=== PATIENT | female | born 1970 | race African-American/Black ===

== ENCOUNTER 2022-01-09 14:52 | Inpatient (IN) ==
[2022-01-09] MEDS ORDERED: ONDANSETRON 4 MG/2 ML VIAL IV STA (20:31)
[2022-01-09] MEDS ORDERED: ALUM/MAG/SIMETH/LIDO VISC 1:1 30 ML BOTTLE PO STA (20:31)
[2022-01-09] MEDS ORDERED: KETOROLAC 30 MG/1 ML VIAL IV STA (20:31)
[2022-01-09] MEDS ORDERED: SODIUM CHLORIDE 0.9% 500 ML IV STA (20:31)
[2022-01-09] MEDS ORDERED: PANTOPRAZOLE 40 MG VIAL IV STA (20:31)
[2022-01-09] MEDS ORDERED: HYDROmorphone 1 MG/1 ML SYRINGE IV STA (20:31)
[2022-01-09 20:42] LABS: Basophils # 0.1 10*3/uL (0.0-0.2); Basophils % 0.6 % (0.0-0.8); Eosinophils # 0.3 10*3/uL (0.0-0.87); Eosinophils % 2.2 % (0.00-10.9); Hematocrit 43.5 VOL% (35.7-47.0); Hemoglobin 15.2 GM/DL (12.0-16.0); Immature Granulocytes % 0.6 %; Immature Granulocytes Absolute 0.07 #; Lymphocytes # 5.5 10*3/uL (1.4-4.0); Lymphocytes % 47.1 % (21.3-54.2); Mean Corpuscular HGB Conc 34.9 GM/DL (32-36); Mean Corpuscular Volume 90.6 FL (87-102); Mean Platelet Volume 12.9 FL (9.6-12.0); Monocytes % 8.4 % (1.7-12.7); Neutrophils % 41.1 % (38.7-73.9); Platelet Count 227 T/CUMM (130-400); Red Cell Distribution Width 17.2 % (9.3-17.3); White Blood Count 11.7 T/CUMM (4-12)
[2022-01-09 20:43] LABS: Bacteria,Urine Occasional /HPF (Few); Mucus,Urine Moderate /LPF (Occasional); RBC,Urine 2 /HPF (0-4); Squamous Epithelial Cell,Urine Occasional /HPF (0-10); Urine Appearance Slightly Hazy (Clear); Urine Color Amber (Yellow)
[2022-01-09 20:44] LABS: Bilirubin,Urine Large mg/dL (Negative); Blood, Urine Negative (Negative); Glucose,Urine (UA) 100 mg/dL (Negative); Ketones,Urine Trace mg/dL (Negative); Nitrite,Urine Negative (Negative); Protein,Urine 30 mg/dL (Negative); Urine Specific Gravity > 1.030 (1.001-1.035); Urine pH 5.5 (4.5-8.0)
[2022-01-09 21:15] LABS: Lymphocytes 46 % (20-55); Total Cells Counted 100
[2022-01-09 21:16] LABS: Albumin 4.1 G/DL (3.4-5.0); Bilirubin,Total 7.3 MG/DL (0.20-1.00); Calcium 9.6 MG/DL (8.5-10.1); Potassium 3.9 MMOL/L (3.5-5.1); Schistocytes Slight; Target Cells Few; Total Protein 8.8 G/DL (6.4-8.2)
[2022-01-09 21:17] LABS: Platelet Estimate Normal
[2022-01-09] MEDS ORDERED: PIPERACILLIN/TAZOBACTAM 3,375 MG in SODIUM CHLORIDE 0.9% 100 ML IV STA (21:37)
[2022-01-09] MEDS ORDERED: GLUCAGON 1 MG VIAL IM PRN (21:48)
[2022-01-09] MEDS ORDERED: DEXTROSE 10% 250 ML BAG IV PRN (21:48)
[2022-01-09] MEDS ORDERED: ACETAMINOPHEN 325 MG TABLET PO PRN (21:48)
[2022-01-09] MEDS ORDERED: hydrALAZINE 20 MG/1 ML VIAL IV PRN (23:07)
[2022-01-09] MEDS: SODIUM CHLORIDE 0.9% 1,000 ML IV SCH (23:54)
[2022-01-10] MEDS: NICOTINE 21 MG/24 HR PATCH TRANSDERM SCH ×2 (02:02→08:28)
[2022-01-10] MEDS: PIPERACILLIN/TAZOBACTAM 3,375 MG in SODIUM CHLORIDE 0.9% 100 ML IV SCH ×3 (05:47→20:32)
[2022-01-10 07:12] LABS: Basophils # 0.1 10*3/uL (0.0-0.2); Basophils % 0.7 % (0.0-0.8); Eosinophils # 0.2 10*3/uL (0.0-0.87); Eosinophils % 2.2 % (0.00-10.9); Hemoglobin 14.1 GM/DL (12.0-16.0); Immature Granulocytes % 0.7 %; Immature Granulocytes Absolute 0.07 #; Lymphocytes # 3.1 10*3/uL (1.4-4.0); Lymphocytes % 32.2 % (21.3-54.2); Mean Corpuscular HGB Conc 34.4 GM/DL (32-36); Mean Corpuscular Volume 91.3 FL (87-102); Mean Platelet Volume 12.2 FL (9.6-12.0); Monocytes # 1.1 10*3/uL (0.11-0.8); Monocytes % 11.4 % (1.7-12.7); Neutrophils % 52.8 % (38.7-73.9); Platelet Count 211 T/CUMM (130-400); Red Blood Count 4.49 MC/CUMM (3.8-5.5); Red Cell Distribution Width 17.7 % (9.3-17.3); White Blood Count 9.6 T/CUMM (4-12)
[2022-01-10 07:34] LABS: Albumin 3.4 G/DL (3.4-5.0); Bilirubin,Total 6.2 MG/DL (0.20-1.00); Calcium 9.2 MG/DL (8.5-10.1); Osmolality,Calculated 269.1 MOS/KG (273-304); Potassium 4.3 MMOL/L (3.5-5.1); Total Protein 7.8 G/DL (6.4-8.2)
[2022-01-10 07:39] LABS: Eosinophils 1 % (0-10); Lymphocytes 25 % (20-55); Platelet Estimate Adequate; Total Cells Counted 100
[2022-01-10] MEDS: PANTOPRAZOLE 40 MG TABLET PO SCH (08:27)
[2022-01-10] MEDS: SODIUM CHLORIDE 0.9% 1,000 ML IV SCH (14:13)
[2022-01-10] MEDS: HYDROmorphone 1 MG/1 ML SYRINGE IV PRN (17:08)
[2022-01-10] MEDS ORDERED: FLUTICASONE 50 MCG NASAL SPRAY 16 GM BOTTLE BOTH NARES PRN (17:11)
[2022-01-11] MEDS: SODIUM CHLORIDE 0.9% 1,000 ML IV SCH ×2 (02:30→18:35)
[2022-01-11] MEDS: PIPERACILLIN/TAZOBACTAM 3,375 MG in SODIUM CHLORIDE 0.9% 100 ML IV SCH ×3 (04:31→21:10)
[2022-01-11 05:37] LABS: Basophils # 0.1 10*3/uL (0.0-0.2); Basophils % 0.6 % (0.0-0.8); Eosinophils # 0.1 10*3/uL (0.0-0.87); Eosinophils % 1.4 % (0.00-10.9); Hematocrit 41.6 VOL% (35.7-47.0); Hemoglobin 14.5 GM/DL (12.0-16.0); Immature Granulocytes % 0.6 %; Immature Granulocytes Absolute 0.06 #; Lymphocytes # 2.9 10*3/uL (1.4-4.0); Lymphocytes % 30.7 % (21.3-54.2); Mean Corpuscular HGB Conc 34.9 GM/DL (32-36); Mean Corpuscular Volume 89.1 FL (87-102); Monocytes # 0.9 10*3/uL (0.11-0.8); Monocytes % 9.2 % (1.7-12.7); Neutrophils % 57.5 % (38.7-73.9); Platelet Count 219 T/CUMM (130-400); Red Blood Count 4.67 MC/CUMM (3.8-5.5); Red Cell Distribution Width 17.2 % (9.3-17.3); White Blood Count 9.4 T/CUMM (4-12)
[2022-01-11 05:44] LABS: INR 1.1; PT Patient Result 12.3 SECS (10.1-12.1)
[2022-01-11 05:59] LABS: AFP Tumor 6.3 NG/ML (0-8); Carcinoembryonic Antigen 1.1 NG/ML (0.0-5.0)
[2022-01-11] MEDS: ONDANSETRON 4 MG/2 ML VIAL IV PRN ×2 (06:32→11:03)
[2022-01-11] MEDS ORDERED: INDOMETHACIN SUPP 50 MG SUPP RECTAL ONE ×2 (06:33→08:22)
[2022-01-11] MEDS: LACTATED RINGERS 1,000 ML IV SCH (08:14)
[2022-01-11] MEDS ORDERED: LIDOCAINE 2% 5 ML VIAL ONE (08:20)
[2022-01-11] MEDS ORDERED: ROCURONIUM 50 MG/5 ML VIAL IV ONE (08:20)
[2022-01-11] MEDS ORDERED: fentaNYL 100 MCG/2 ML VIAL ONE (08:20)
[2022-01-11] MEDS ORDERED: propofoL 200 MG/20 ML VIAL IV ONE ×2 (08:20→09:24)
[2022-01-11] MEDS ORDERED: SUCCINYLCHOLINE 200 MG/10 ML VIAL ONE (08:20)
[2022-01-11] MEDS ORDERED: MIDAZOLAM 2 MG/2 ML VIAL ONE (08:21)
[2022-01-11] MEDS ORDERED: SEVOFLURANE 1 UNIT/15 MINUTE INH ONE ×5 (08:21→10:25)
[2022-01-11 08:24] LABS: Albumin 3.3 G/DL (3.4-5.0); Bilirubin,Total 8.2 MG/DL (0.20-1.00); Calcium 9.4 MG/DL (8.5-10.1); Osmolality,Calculated 276.5 MOS/KG (273-304); Potassium 4.2 MMOL/L (3.5-5.1)
[2022-01-11 08:52] LABS: Hepatitis B Core IgM Quant 0.12 Index; Hepatitis B Surface Ag Quant 0.14 Index; Hepatitis B Surface Ag Result Non-Reactive (NonReactive); Hepatitis C Virus Ab Quant 0.21 Index; Hepatitis C Virus Ab Result Non-Reactive (NonReactive)
[2022-01-11] MEDS ORDERED: ONDANSETRON 4 MG/2 ML VIAL ONE (10:17)
[2022-01-11] MEDS ORDERED: LABETALOL 20 MG/4 ML SYRINGE IV ONE (10:17)
[2022-01-11] MEDS: PANTOPRAZOLE 40 MG TABLET PO SCH (10:25)
[2022-01-11] MEDS: NICOTINE 21 MG/24 HR PATCH TRANSDERM SCH (10:25)
[2022-01-11] MEDS ORDERED: MEPERIDINE 25 MG/1 ML VIAL IV STA (10:51)
[2022-01-11] MEDS ORDERED: MEPERIDINE 50 MG/1 ML VIAL ONE ×2 (10:57→11:26)
[2022-01-11] MEDS ORDERED: MEPERIDINE 25 MG/1 ML VIAL IV ONE (11:20)
[2022-01-11] MEDS: HYDROmorphone 1 MG/1 ML SYRINGE IV PRN (14:20)
[2022-01-11] MEDS: lisinopriL 10 MG TABLET PO SCH (17:19)
[2022-01-11] MEDS ORDERED: fentaNYL 25 MCG/HR PATCH TRANSDERM SCH ×2 (18:00→20:00)
[2022-01-12] MEDS: HYDROmorphone 1 MG/1 ML SYRINGE IV PRN ×4 (02:08→20:38)
[2022-01-12 04:53] LABS: Basophils % 0.4 % (0.0-0.8); Eosinophils # 0.1 10*3/uL (0.0-0.87); Eosinophils % 0.5 % (0.00-10.9); Hematocrit 38.2 VOL% (35.7-47.0); Immature Granulocytes % 0.6 %; Immature Granulocytes Absolute 0.06 #; Lymphocytes # 3.9 10*3/uL (1.4-4.0); Lymphocytes % 37.7 % (21.3-54.2); Mean Corpuscular Volume 91.8 FL (87-102); Mean Platelet Volume 12.8 FL (9.6-12.0); Monocytes % 9.5 % (1.7-12.7); Neutrophils % 51.3 % (38.7-73.9); Platelet Count 205 T/CUMM (130-400); Red Blood Count 4.16 MC/CUMM (3.8-5.5); Red Cell Distribution Width 17.6 % (9.3-17.3); White Blood Count 10.2 T/CUMM (4-12)
[2022-01-12 05:08] LABS: Albumin 3.2 G/DL (3.4-5.0); Bilirubin,Total 2.5 MG/DL (0.20-1.00); Calcium 8.6 MG/DL (8.5-10.1); Osmolality,Calculated 276.5 MOS/KG (273-304); Potassium 3.9 MMOL/L (3.5-5.1); Total Protein 7.1 G/DL (6.4-8.2)
[2022-01-12] MEDS: PIPERACILLIN/TAZOBACTAM 3,375 MG in SODIUM CHLORIDE 0.9% 100 ML IV SCH ×3 (05:53→20:40)
[2022-01-12] MEDS: LACTATED RINGERS 1,000 ML IV SCH (08:10)
[2022-01-12] MEDS: SODIUM CHLORIDE 0.9% 1,000 ML IV SCH (08:17)
[2022-01-12] MEDS: lisinopriL 10 MG TABLET PO SCH (08:38)
[2022-01-12] MEDS: PANTOPRAZOLE 40 MG TABLET PO SCH (08:38)
[2022-01-12] MEDS: NICOTINE 21 MG/24 HR PATCH TRANSDERM SCH (08:38)
[2022-01-13] MEDS: HYDROmorphone 1 MG/1 ML SYRINGE IV PRN ×3 (00:45→09:43)
[2022-01-13 05:13] LABS: Basophils # 0.1 10*3/uL (0.0-0.2); Basophils % 0.6 % (0.0-0.8); Eosinophils # 0.2 10*3/uL (0.0-0.87); Eosinophils % 1.5 % (0.00-10.9); Hematocrit 42.4 VOL% (35.7-47.0); Hemoglobin 14.3 GM/DL (12.0-16.0); Immature Granulocytes % 0.7 %; Immature Granulocytes Absolute 0.08 #; Lymphocytes # 5.1 10*3/uL (1.4-4.0); Lymphocytes % 45.8 % (21.3-54.2); Mean Corpuscular HGB Conc 33.7 GM/DL (32-36); Mean Corpuscular Volume 93.2 FL (87-102); Mean Platelet Volume 12.6 FL (9.6-12.0); Monocytes % 9.2 % (1.7-12.7); NRBC # 0.02 10*3/uL; Neutrophils % 42.2 % (38.7-73.9); Platelet Count 229 T/CUMM (130-400); Red Blood Count 4.55 MC/CUMM (3.8-5.5); Red Cell Distribution Width 17.6 % (9.3-17.3); White Blood Count 11.1 T/CUMM (4-12)
[2022-01-13] MEDS: PIPERACILLIN/TAZOBACTAM 3,375 MG in SODIUM CHLORIDE 0.9% 100 ML IV SCH (05:29)
[2022-01-13 05:33] LABS: Albumin 3.1 G/DL (3.4-5.0); Bilirubin,Total 1.9 MG/DL (0.20-1.00); Calcium 8.7 MG/DL (8.5-10.1); Osmolality,Calculated 276.5 MOS/KG (273-304); Potassium 3.9 MMOL/L (3.5-5.1)
[2022-01-13] MEDS: SODIUM CHLORIDE 0.9% 1,000 ML IV SCH (05:33)
[2022-01-13] MEDS: PANTOPRAZOLE 40 MG TABLET PO SCH (09:21)
[2022-01-13] MEDS: NICOTINE 21 MG/24 HR PATCH TRANSDERM SCH ×2 (09:21→11:53)
[2022-01-13] MEDS: lisinopriL 10 MG TABLET PO SCH (09:21)
[2022-01-13 11:47] VITALS: BP 105/62
[2022-01-14] MEDS ORDERED: fentaNYL 25 MCG/HR PATCH TRANSDERM SCH (09:00)
== END 2022-01-13 13:42 | disposition home or self-care (01) | DRG 438 ==
LOC: N.ED 14:52 → N.EDINP 21:48 → N.3E 01-10 00:52
PROVIDERS: ADMIT Hospitalist; ATTEND Hospitalist